=== PATIENT | male | born 1985 | race Caucasian/White ===

== ENCOUNTER 2025-05-19 13:07 | Outpatient (AMB) | payer BC, SELFPAY ==
--- NOTE | 2025-05-19 13:07 | MHC.OFFVIS ---
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 bladder emptying Trial on demand anti-inflammatory Results AMB Urinalysis, Automated UA Leukoctes 0 Ady/uL Last Edit by DARLENE Arzola on 05/19/25 16:12 UA Nitrite Negative Last Edit by Shira Montero [facility] on 05/19/25 16:12 UA Urobilinogen 0.2 mg/dL Last Edit by Shira Montero [facility] on 05/19/25 16:12 UA Protein 0 mg/dL Last Edit by Shira Montero [facility] on 05/19/25 16:12 UA pH 8.0 Last Edit by Shira Montero [facility] on 05/19/25 16:12 UA Blood 0 Alexi/uL Last Edit by Shira Montero [facility] on 05/19/25 16:12 UA Specific [place] 1.000 Last Edit by Shira Montero [facility] on 05/19/25 16:12 UA Ketone Negative Last Edit by Shira Montero [facility] on 05/19/25 16:12 UA Bilirubin 0 mg/dL Last Edit by Shira Montero [facility] on 05/19/25 16:12 UA Glucose 0 mg/dL Last Edit by Shira Montero [facility] on 05/19/25 16:12 Assessment & Plan Assessment & Plan (1) Epididymitis: Code(s): N45.1 - Epididymitis Category: Medical Orders: Orders AMB Urinalysis Automated Today Z13.9 - Encounter for screening, unspecified Medications: New naproxen (Naprosyn) 500 mg PO Q12H 30 days PRN 60 tabs 0RF pain N45.1 - Epididymitis, S39.91XA - Unspecified injury of abdomen, initial encounter Coding Diagnoses Epididymitis N45.1
== END 2025-05-19 13:54 | disposition home or self-care (01) ==
LOC: HO.HUSH 13:08
PROVIDERS: PCP Internal Medicine Sports Medicine; Visit Provider Urology
DX: Z13.9 Encounter for screening, unspecified (principal)

== ENCOUNTER → 2025-05-19 13:07 | Outpatient (BNVA) | payer BC, SELFPAY | PROVIDERS: PCP Internal Medicine Sports Medicine; Visit Provider Urology | DX: Z13.9 Encounter for screening, unspecified (principal); N45.1 Epididymitis | CPT/HCPCS: 81003 ==